=== PATIENT | female | born 1935 | race Caucasian/White ===

== ENCOUNTER 2017-11-26 08:00 | Outpatient (CLI) | payer MEDICARE, OTHER ==
[2017-11-26 12:44] LABS: BASOPHILS % (AUTO) 0.8 %; EOSINOPHILS # (AUTO) 0.2 10^3/uL (0.0-0.7); EOSINOPHILS % (AUTO) 3.9 %; HGB - HEMOGLOBIN 14.9 g/dL (12.0-16.0); LYMPHOCYTES # (AUTO) 1.2 10^3/uL (1.5-3.5); LYMPHOCYTES % (AUTO) 27.7 %; MEAN CORPUSCULAR HEMOGLOBIN 31.6 pg (27.0-31.0); MEAN CORPUSCULAR HGB CONC 34.1 g/dL (32.0-36.0); MEAN CORPUSCULAR VOLUME 92.6 fL (81.0-99.0); MEAN PLATELET VOLUME 8.8 fL (7.9-10.8); MONOCYTES # (AUTO) 0.4 10^3/uL (0.0-1.0); MONOCYTES % (AUTO) 9.8 %; NEUTROPHILS # (AUTO) 2.5 10^3/uL (1.5-6.6); NEUTROPHILS % (AUTO) 57.8 %; PLT - PLATELET COUNT 210 10^3/uL (130-450); RED BLOOD COUNT 4.71 10^6/uL (4.20-5.40); RED CELL DISTRIBUTION WIDTH 14.2 % (12.0-15.0); WHITE BLOOD COUNT 4.3 x10^3/uL (4.8-10.8)
[2017-11-26 13:38] LABS: THYROID STIMULATING HORMONE 3.25 uIU/mL (0.34-5.60)
[2017-11-26 13:39] LABS: ALBUMIN 4.4 g/dL (3.2-5.5); ALBUMIN/GLOBULIN RATIO 1.8 (1.0-2.2); ALKALINE PHOSPHATASE 56 IU/L (42-121); ALT ALANINE AMINOTRANSFERASE 15 IU/L (10-60); AST ASPARTATE AMINOTRANSFERASE 17 IU/L (10-42); BILIRUBIN,TOTAL 0.8 mg/dL (0.2-1.0); BUN - BLOOD UREA NITROGEN 11 mg/dL (6-20); CALCIUM 9.2 mg/dL (8.5-10.3); CARBON DIOXIDE - CO2 28 mmol/L (21-32); CHLORIDE 102 mmol/L (101-111); CHOL/HDL RATIO 3.6 (<4.4); CHOLESTEROL 235 mg/dL; CREATININE 0.6 mg/dL (0.4-1.0); GFR - MDRD 95 (>89); GLUCOSE 163 mg/dL (70-100); HDL CHOLESTEROL 65 mg/dL; LDL CHOLESTEROL,CALCULATED 140 mg/dL; LDL/HDL RATIO 2.2 (<4.4); SODIUM 136 mmol/L (135-145); TOTAL PROTEIN 6.8 g/dL (6.7-8.2); VLDL CHOLESTEROL 30 mg/dL
[2017-11-26 13:41] LABS: FREE T4 (FREE THYROXINE) 1.27 ng/dL (0.58-1.64)
[2017-11-26 13:42] LABS: HB2 TOTAL 15.7 g/dL; HEMOGLOBIN A1C 0.64 g/dL; HEMOGLOBIN A1C % 5.9 % (4.6-6.2)
== END 2017-11-26 08:01 | disposition home or self-care (01) ==
LOC: LAB.WCP 08:00
PROVIDERS: ATTEND Internal Medicine
DX: I10 Essential (primary) hypertension (principal); E11.9 Type 2 diabetes mellitus without complications; E78.4 Other hyperlipidemia
CPT/HCPCS: 36415; 80053; 80061; 83036; 83721; 84439; 84443; 84481; 85025

== ENCOUNTER 2018-01-11 01:14 | Outpatient (CLI) | payer MEDICARE, OTHER | END 2018-01-11 01:15 | disposition critical access hospital (66) | LOC: EMS 01:14 | PROVIDERS: ATTEND Surgery | DX: R42 Dizziness and giddiness (principal); R68.89 Other general symptoms and signs; R03.1 Nonspecific low blood-pressure reading; R19.7 Diarrhea, unspecified | CPT/HCPCS: A0425; A0427 ==

== ENCOUNTER 2018-01-11 01:29 | Emergency (ER) | payer MEDICARE, OTHER ==
[2018-01-11] MEDS ORDERED: NITROGLYCERIN SL 0.4 MG TABLET SL ONE (01:50)
[2018-01-11] MEDS ORDERED: HEPARIN 25000UNITS/500ML (D5W) 25,000 UNIT/500 ML BAG IV ONE ×2 (01:51→02:12)
[2018-01-11] MEDS ORDERED: METOPROLOL TARTRATE 50 MG TABLET ONE ×2 (01:51→02:12)
[2018-01-11] MEDS ORDERED: HEPARIN 5,000 UNIT/ML VIAL ONE (01:51)
[2018-01-11] MEDS ORDERED: CLOPIDOGREL 300 MG TABLET PO ONE ×2 (01:51→02:12)
[2018-01-11] MEDS ORDERED: ASPIRIN CHEW 81 MG TABLET ONE (01:51)
--- NOTE | 2018-01-11 01:54 | ED Physician Documentation ---
PD HPI SYNCOPE - Stated complaint Stated Complaint: GLF, DIZZY, HYPOTENSION - Chief complaint Chief Complaint: Neuro - History obtained from History obtained from: Patient, Family, EMS - History of Present Illness Witnessed: Unwitnessed (The patient reportedly was feeling well earlier in the day with normal level of activity and had gone out to dinner with her daughters. She had gone to bed without any noted incident. One daughter says her mother abruptly called out for help and that she was not feeling well from the bathroom. The daughters went in there and she was down on the floor looked pale and said she was feeling ill. There is no obvious injury per se. They called EMS and the medics initially noted her blood pressure to be low. En route her heart rate was initially in the 70s and would drift down to 40s and then back up. They did start an IV and give her some fluid bolus en route. Her blood pressure was still hypotensive on arrival at 80-90 systolic. The patient is able to talk but is confused and just says she feels ill and is asking for help. She is not able to answer questions directly regarding pain or chest discomfort.) Timing - onset: How many hours ago (1) Preceding symptoms: Unknown Associated symptoms: Diaphoresis, Dyspnea. No: Seizure, Incontinant of urine, Headache, Chest pain, Abdominal pain Review of Systems Unable to obtain: AMS (info from daughters) Constitutional: denies: Fever Nose: denies: Rhinorrhea / runny nose, Congestion Respiratory: denies: Cough GI: reports: Diarrhea (had loose stool just this evening). denies: Vomiting, Bloody / black stool Neurologic: denies: Generalized weakness, Syncope, Headache Endocrine: denies: Weight loss PD PAST MEDICAL HISTORY - Past Medical History Cardiovascular: Hypertension, High cholesterol Respiratory: None Endocrine/Autoimmune: Type 2 diabetes, HyPOthyroidism GI: None : Frequency HEENT: Other Psych: Anxiety Musculoskeletal: Osteoarthritis Derm: None - Past Surgical History General: Colonoscopy Ortho: Other HEENT: Cataracts - Present Medications Home Medications: Ambulatory Orders Medication Instructions Recorded Confirmed Cholecalciferol (Vitamin D3) DAILY 02/10/14 02/10/14 [Vitamin D-3] Levothyroxine Sodium [Synthroid] DAILY 02/10/14 02/10/14 Losartan [Cozaar] 25 mg PO ONCE 02/10/14 02/10/14 Metformin HCl 500 mg PO BID 02/10/14 02/10/14 Multivitamin W/Minerals Liq 15 ml PO DAILY 02/10/14 02/10/14 [Centrum] - Allergies Allergies/Adverse Reactions: Allergies Allergy/AdvReac Type Severity Reaction Status Date / Time No Known Drug Allergies Allergy Verified 02/10/14 08:34 - Social History Does the pt smoke?: No Smoking Status: Never smoker Does the pt drink ETOH?: No Does the pt have substance abuse?: No PD ED PE NORMAL - Vitals Vital signs reviewed: Yes (hypotensive, heart rate oscillating from 40s-70s.) - General General: Other (restless, pale, unfocused and not answering questions, but just saying she feels "awful". ). No: Alert and oriented X 3 - HEENT HEENT: Pharynx benign, Other (normal gag reflex. ) - Neck Neck: Supple, no meningeal sign, No adenopathy - Cardiac Cardiac: RRR, No murmur - Respiratory Respiratory: Other (port noted right chestwall. no redness of the skin. ). No: Clear bilaterally (congested soundsin bases. No wheezing. ) - Abdomen Abdomen: Soft, Non tender, Non distended - Derm Derm: No: Normal color (pallor with mild diaphoresis) - Extremities Extremities: No tenderness to palpate, Normal ROM s pain, No edema, No calf tenderness / cord - Neuro Neuro: Normal speech. No: Alert and oriented X 3 (restless and anxious) Eye Opening: Spontaneous Motor: Localizes to Pain Verbal: Confused GCS Score: 13 - Psych Psych: No: Normal affect (anxious) Results - Vitals Vitals: Vital Signs - 24 hr 01/11/18 01/11/18 01/11/18 01:29 01:45 01:50 Temperature 36.2 C L Heart Rate 116 H 73 61 Respiratory 18 20 Rate Blood Pressure 81/56 L 64/49 L 89/53 L O2 Saturation 99 98 01/11/18 02:20 Temperature Heart Rate 40 L Respiratory 30 H Rate Blood Pressure 61/48 L O2 Saturation 95 Oxygen O2 Source Room air - EKG (time done) 01:34 Rate: Rate (enter#) (73) Rhythm: NSR Intervals: 2nd degree AVB type 1 QRS: Normal Ischemia: ST elevation c/w ischemia (inferolateral) Compare to prior EKG: Old EKG unavailable Computer interpretation: Agree with computer - Labs Labs: Laboratory Tests 01/11/18 01/11/18 01/11/18 01:50 01:50 01:50 WBC 8.0 RBC 3.63 L Hgb 11.4 L Hct 35.4 L MCV 97.5 MCH 31.4 H MCHC 32.2 RDW 14.5 Plt Count 170 MPV 9.0 Neut # 3.9 Lymph # 3.4 [place] # 0.4 Eos # 0.2 Baso # 0.1 Absolute Nucleated RBC 0.00 Nucleated RBC % 0.0 Sodium 133 L Potassium 3.6 Chloride 107 Carbon Dioxide 14 L Anion Gap 12.0 BUN 16 Creatinine 0.8 Estimated GFR (MDRD) 68 L Glucose 529 H* Lactic Acid Calcium 6.9 L Magnesium 2.0 Total Bilirubin 0.7 AST 168 H ALT 115 H Alkaline Phosphatase 67 Troponin I 0.19 B-Natriuretic Peptide Total Protein 4.4 L Albumin 2.7 L Globulin 1.7 L Albumin/Globulin Ratio 1.6 Lipase 20 L 01/11/18 01/11/18 02:09 02:09 WBC RBC Hgb Hct MCV MCH MCHC RDW Plt Count MPV Neut # Lymph # [place] # Eos # Baso # Absolute Nucleated RBC Nucleated RBC % Sodium Potassium Chloride Carbon Dioxide Anion Gap BUN Creatinine Estimated GFR (MDRD) Glucose Lactic Acid > 10.0 H* Calcium Magnesium Total Bilirubin AST ALT Alkaline Phosphatase Troponin I B-Natriuretic Peptide 357 H Total Protein Albumin Globulin Albumin/Globulin Ratio Lipase - Rads (name of study) chest Radiology: EMP read contemporaneously (interstitial changes c/w CHF.) PD MEDICAL DECISION MAKING - ED course Complexity details: reviewed results, re-evaluated patient (The patient had initial medications given for acute SC. Her blood pressure did improve to over 100 systolic with IV fluids. Her heart rate was still wavering between 40s and 70s. EMS was here to start transporting the patient critically to [facility] for cardiac intervention. At that point the patient abruptly stopped breathing and collapsed unresponsive. Her heart rate went down to 20-30 and there are no palpable pulses. She had snoring type breathing. We did start bag -valve-mask breathing and gave atropine IV. Her daughters had just left assuming to go ahead of the ambulance. We did initiate CPR for couple of minutes in order to discuss among myself and the ER personnel who had heard the family discussion and we concurred that it did sound like they would not want CPR and resuscitation. We therefore stopped resuscitation. She had agonal rhythm and a bedside ultrasound showed minimal heart movement and so was in the category of futile care anyway. We did get in touch with the daughters by cell phone and they returned to the ER and subsequently confirmed that this was the appropriate course of inaction.), considered differential, d/w patient, d/w family (Her 2 of her daughters are here in the ER and states the patient does have a DNR form at home with her not sure if it is limitations. I talked with him about the patient here in what she likely would want done. I discussed with them the apparent acute SC on EKG and the intervention of a cardiac cath with possible stenting. They did feel she would want that level of care as she is still undergoing chemotherapy for her cancer. I asked about more urgent and invasive intervention such as CPR and intubation and they felt that that would not be what she wanted. We did initiate the code STEMI protocol.), d/w access consultant (ER doctor Fransisco at [facility], who reviewed ECG and agreed with STEMI protocol. ) - Critical Care Time(min): 30 Time Includes: Direct patient care, Reassess patient, Family consult for tx dec Data interpretation: Labs, Pulse ox, CXR Procedures excluded from critical care time: EKG Departure - Departure Disposition: 20 Clinical Impression: Near syncope, ST elevation myocardial infarction (STEMI) of inferior wall, initial episode of care, Cardiogenic shock Altered mental state Qualifiers: Altered mental status type: stupor Qualified Code(s): R40.1 - Stupor Condition: Critical Record reviewed to determine appropriate education?: Yes
[2018-01-11] MEDS ORDERED: SODIUM CHLORIDE 0.9% 1,000 ML IV ONE (01:55)
[2018-01-11] MEDS ORDERED: ATROPINE ABBOJECT 1 MG/10 ML SYRINGE IVP ONE (02:00)
[2018-01-11] MEDS ORDERED: MORPHINE 10 MG/ML VIAL IVP STA (02:02)
[2018-01-11] MEDS ORDERED: CLOPIDOGREL 300 MG TABLET PO STA (02:12)
[2018-01-11] MEDS ORDERED: HEPARIN 25000UNITS/500ML (D5W) 25,000 UNIT/500 ML BAG IV STA (02:12)
[2018-01-11] MEDS ORDERED: HEPARIN 5,000 UNIT/ML VIAL IVP STA (02:12)
[2018-01-11] MEDS ORDERED: MORPHINE 2 MG/ML SYRINGE ONE (02:13)
[2018-01-11 02:23] LABS: BASOPHILS # (AUTO) 0.1 10^3/uL (0.0-0.1); BASOPHILS % (AUTO) 0.8 %; EOSINOPHILS # (AUTO) 0.2 10^3/uL (0.0-0.7); EOSINOPHILS % (AUTO) 1.9 %; HGB - HEMOGLOBIN 11.4 g/dL (12.0-16.0); LYMPHOCYTES # (AUTO) 3.4 10^3/uL (1.5-3.5); LYMPHOCYTES % (AUTO) 42.5 %; MEAN CORPUSCULAR HEMOGLOBIN 31.4 pg (27.0-31.0); MEAN CORPUSCULAR HGB CONC 32.2 g/dL (32.0-36.0); MEAN CORPUSCULAR VOLUME 97.5 fL (81.0-99.0); MONOCYTES # (AUTO) 0.4 10^3/uL (0.0-1.0); MONOCYTES % (AUTO) 5.5 %; NEUTROPHILS # (AUTO) 3.9 10^3/uL (1.5-6.6); NEUTROPHILS % (AUTO) 49.3 %; PLT - PLATELET COUNT 170 10^3/uL (130-450); RED BLOOD COUNT 3.63 10^6/uL (4.20-5.40); RED CELL DISTRIBUTION WIDTH 14.5 % (12.0-15.0)
--- NOTE | 2018-01-11 02:25 | XRAY Report ---
EXAM: CHEST RADIOGRAPHY EXAM DATE: 01/11/2018 02:09 AM. CLINICAL HISTORY: Chest discomfort, pale, dyspnea. COMPARISON: None. TECHNIQUE: 1 view. FINDINGS: Lungs/Pleura: Bilateral interstitial and airspace opacities of uncertain chronicity. No definite pleu ral effusion seen. No pneumothorax. Mediastinum: Mild cardiomegaly. Aortic atherosclerosis. Other: Right-sided Port-A-Cath with the tip in the upper SVC. Surgical clips in the left axilla. IMPRESSION: 1. Bilateral pulmonary opacities of uncertain chronicity, possibly infiltrates or edema. Recommend ra diographic follow-up. 2. Borderline heart size. [facility] Referring Provider Line: [phone] SITE ID: [id number]
[2018-01-11 02:43] LABS: ALBUMIN 2.7 g/dL (3.2-5.5); ALBUMIN/GLOBULIN RATIO 1.6 (1.0-2.2); BILIRUBIN,TOTAL 0.7 mg/dL (0.2-1.0); CALCIUM 6.9 mg/dL (8.5-10.3); CREATININE 0.8 mg/dL (0.4-1.0); TOTAL PROTEIN 4.4 g/dL (6.7-8.2)
[2018-01-11 03:04] VITALS: BP 61/48
[2018-01-11] MEDS ORDERED: ATROPINE 0.4 MG/ML VIAL IVP ONE (04:11)
== END 2018-01-11 04:08 | disposition expired ==
LOC: EDUNIT# → ED 01:29
DX: I21.19 ST elevation (STEMI) myocardial infarction involving other coronary artery of inferior wall (principal); R57.0 Cardiogenic shock; I44.1 Atrioventricular block, second degree; C80.1 Malignant (primary) neoplasm, unspecified; Z95.828 Presence of other vascular implants and grafts; I10 Essential (primary) hypertension; E11.9 Type 2 diabetes mellitus without complications; Z79.84 Long term (current) use of oral hypoglycemic drugs; Z79.899 Other long term (current) drug therapy
CPT/HCPCS: 36415; 71045; 80053; 83605; 83690; 83735; 83880; 84484; 85025; 92950; 93005; 96374; 96375; 99285; 99291; A9270; J2270